=== PATIENT | male | born 1950 | race Caucasian/White ===

== ENCOUNTER 2020-03-13 01:03 | Outpatient (CLI) | payer MEDICARE, SELFPAY ==
[2020-03-13 19:16] LABS: SARS-CoV-2 RNA PCR Negative
== END 2020-03-13 01:04 | disposition home or self-care (01) ==
LOC: ANHCOVIDDT 01:05
PROVIDERS: Visit Provider Internal Medicine Gastroenterology
DX: Z01.818 Encounter for other preprocedural examination (principal); Z11.59 Encounter for screening for other viral diseases; E11.9 Type 2 diabetes mellitus without complications
CPT/HCPCS: 87635; C9803; U0003

== ENCOUNTER 2020-03-15 01:17 | Day surgery (SDC) | payer MEDICARE, SELFPAY ==
[2020-03-07 13:12] VITALS: BMI 33.3
[2020-03-15 06:20] VITALS: BP 145/91; PULSE 69; RESP 17; TEMP 36.6; O2SAT 97
[2020-03-15] MEDS: LACTATED RINGERS 1,000 ML 150 ML IV CONT (06:32)
--- NOTE | 2020-03-15 07:19 | P.PNAN_ITS ---
Anes - Initial Pre Proc Eval Procedure: Operation Date: 03/15/20 07:30 Proposed Procedures p Screening Colonoscopy - David Patton MD Date/Time: 03/15/20 07:19 Surgeon: David Patton MD Pre Op Diagnosis: Personal Hx Colon Ca Patient Data Age: 69 Gender: M Height: 6 ft Weight: 107.4 kg Last Vital Signs Temp 97.9 F 03/15/20 06:20 Pulse 69 03/15/20 06:20 Resp 17 03/15/20 06:20 BP 145/91 H 03/15/20 06:20 Pulse Ox 97 03/15/20 06:20 Allergies Allergy/AdvReac Type Severity Reaction Status Date / Time No Known Allergies Allergy Verified 03/15/20 06:17 Home Medications Medication Instructions Recorded Confirmed Type aspirin [Adult Low Dose Aspirin] 81 mg PO DAILY 03/07/20 03/15/20 History atorvastatin 40 mg PO DAILY 03/07/20 03/15/20 History calcium carbonate [Calcium 600] 600 mg PO DAILY 03/07/20 03/15/20 History gabapentin 300 mg PO DAILY 03/07/20 03/15/20 History gemfibrozil 600 mg PO BID 03/07/20 03/15/20 History maqxzxdg-oup-WH-lycopen-lutein 1 tablet PO DAILY 03/07/20 03/15/20 History [Men 50 Plus Multivitamin] Patient hx anesthesia problems: none Family hx anesthesia problems: none PMFSH Past Medical History Medical History (Updated 03/15/20 @ 07:20 by Alex Chinchilla MD) H/O colon cancer, stage I 2002; no residual problems Hyperlipidemia Social History Social History Gender identity (if verbalized by the patient): Male Anes - Eval Final PreProcedure Day of Procedure 03/15/20 07:19 Patient weight: overweight Heart: regular rate and rhythm Lungs: clear to auscultation Airway: Mallampati scale class II Neurological: alert and oriented Last oral intake: >/= 8 hours ASA classification: II Emergent: no Anesthetic plan: proceed Anesthesia type and monitoring: general GIVS and standard monitoring Informed Consent: The patient's anesthetic plan and its attendant risks and b enefits were discussed with the patient/family/POA. Questions were solicited and answers provided to the satisfaction of the patient/family/POA.
--- NOTE | 2020-03-15 07:48 | WPDGICN ---
Assessment and Plan Additional Plan Plan is for surveillance colonoscopy at this time because of his prior history of colon cancer. Follow-up colonoscopy every 3-5 years advised. GI Consult Note Consult date/time: 03/15/20 07:48 HPI: Jason Mccauley is a 69 year old male seen in evaluation at the request of Dr Araujo.Patient presents for surveillance colonoscopy. Patient has a past medical history of colon cancer resected in 2001. His current weight appetite bowel movements are normal. He denies abdominal pain he denies any bleeding. Family history is noncontributory. Review of Systems Review of Systems: All systems reviewed & are unremarkable except as noted in HPI and below PMFSH Past Medical History Medical History H/O colon cancer, stage I 2002; no residual problems Hyperlipidemia Social History Social History Gender identity (if verbalized by the patient): Male Meds Home Medications and Allergies Home Medications Medication Instructions Recorded Confirmed Type aspirin [Adult Low Dose Aspirin] 81 mg PO DAILY 03/07/20 03/15/20 History atorvastatin 40 mg PO DAILY 03/07/20 03/15/20 History calcium carbonate [Calcium 600] 600 mg PO DAILY 03/07/20 03/15/20 History gabapentin 300 mg PO DAILY 03/07/20 03/15/20 History gemfibrozil 600 mg PO BID 03/07/20 03/15/20 History eozwlqkw-iin-QZ-lycopen-lutein 1 tablet PO DAILY 03/07/20 03/15/20 History [Men 50 Plus Multivitamin] Allergies Allergy/AdvReac Type Severity Reaction Status Date / Time No Known Allergies Allergy Verified 03/15/20 06:17 Vital Signs Vital Signs - 24 hr 03/15/20 06:20 Temperature 97.9 F Pulse Rate 69 Respiratory Rate 17 Blood Pressure 145/91 H Pulse Oximetry 97 Exam Narrative: Exam Narrative: Physical exam reveals patient to be alert. Vital signs stable. HEENT exam unremarkable. Lungs are clear to auscultation and percussion. Heart is without murmur or extra sounds. Abdominal exam bowel sounds are present soft nontender with no hepatosplenomegaly. Digital external rectal exam normal.
[2020-03-15 07:52] VITALS: BP 131/80; PULSE 89; RESP 25; O2SAT 94
[2020-03-15 08:02] VITALS: BP 130/89; PULSE 76; RESP 17; O2SAT 97
[2020-03-15 08:12] VITALS: BP 136/87; PULSE 73; RESP 14; O2SAT 99
== END 2020-03-15 08:17 | disposition home or self-care (01) ==
PROVIDERS: Visit Provider Internal Medicine Gastroenterology
PROC: 0DJD8ZZ Inspection of Lower Intestinal Tract, Via Natural or Artificial Opening Endoscopic (ICD-10-PCS; CPT 45378; principal; 2020-03-15 07:30)
DX: Z12.11 Encounter for screening for malignant neoplasm of colon (principal); D12.2 Benign neoplasm of ascending colon; K62.1 Rectal polyp; K64.8 Other hemorrhoids; Z98.0 Intestinal bypass and anastomosis status; Z85.038 Personal history of other malignant neoplasm of large intestine; Z90.49 Acquired absence of other specified parts of digestive tract; E78.5 Hyperlipidemia, unspecified; Z79.82 Long term (current) use of aspirin
CPT/HCPCS: 45385; 88305; J2704; J7120

== ENCOUNTER 2022-12-25 00:27 | Day surgery (SDC) | payer MEDICARE, SELFPAY ==
[2022-12-16 13:22] VITALS: BMI 34.0
[2022-12-25 06:25] VITALS: BP 142/78; PULSE 68; RESP 18; TEMP 36.3; O2SAT 97; BMI 32.9
[2022-12-25] MEDS: LACTATED RINGERS 1,000 ML 150 ML IV CONT (06:42)
--- NOTE | 2022-12-25 07:14 | P.PNAN_ITS ---
Anes - Initial Pre Proc Eval Procedure: Operation Date: 12/25/22 07:30 Proposed Procedures p Colonoscopy - David Patton MD Date/Time: 12/25/22 07:14 Surgeon: David Patton MD Pre Op Diagnosis: hx of colon ca Patient Data Age: 72 Gender: M Height: 1.83 m Weight: 110.2 kg Last Vital Signs Temp 97.3 F L 12/25/22 06:25 Pulse 68 12/25/22 06:25 Resp 18 12/25/22 06:25 BP 142/78 H 12/25/22 06:25 Pulse Ox 97 12/25/22 06:25 O2 Del Method Room Air 12/25/22 06:25 Allergies Allergy/AdvReac Type Severity Reaction Status Date / Time No Known Allergies Allergy Verified 12/25/22 06:23 Home Medications Medication Instructions Recorded Confirmed Type atorvastatin 40 mg tablet 40 mg PO DAILY 03/07/20 12/25/22 History calcium carbonate 600 mg calcium 600 mg PO DAILY 03/07/20 12/25/22 History (1,500 mg) tablet (Calcium) gemfibrozil 600 mg tablet 600 mg PO BID 03/07/20 12/25/22 History fslpbzjh-mmi-jjwnl acid 300 1 tablet PO DAILY 03/07/20 12/25/22 History mcg-lycopene 600 mcg-lutein 300 mcg tablet (Men 50 Plus Multivitamin) sodium,potassium,mag sulfates 17.5 See Rx Instructions PO .COMPLEX 11/27/22 12/25/22 Rx gram-3.13 gram-1.6 gram oral soln #354 mL (Suprep Bowel Prep Kit) Patient hx anesthesia problems: none Family hx anesthesia problems: none Results Review: All pre-operative results and documents have been reviewed as part of the pre- operative evaluation. [facility] Past Medical History Medical History (Updated 03/15/20 @ 07:50 by David Patton MD) H/O colon cancer, stage I 2002; no residual problems Hyperlipidemia Social History Social History Smoking status: Never smoker Substance use: never Living arrangements: with family Gender identity (if verbalized by the patient): Male Spiritual care concerns: No Anes - Eval Final PreProcedure Day of Procedure 04/20/23 07:14 Patient weight: obese Heart: regular rate and rhythm Lungs: clear to auscultation Airway: Mallampati scale class II Neurological: alert and oriented Last oral intake: >/= 8 hours ASA classification: III Emergent: no Anesthetic plan: proceed Anesthesia type and monitoring: general GIVS and standard monitoring Results Review: All pre-operative results and documents have been reviewed as part of the pre- operative evaluation. Informed Consent: The patient's anesthetic plan and its attendant risks and benefits were discussed with the patient/family/POA. Questions were solicited and answers provided to the satisfaction of the patient/family/POA.
--- NOTE | 2022-12-25 07:32 | PM.HPGS ---
History of Present Illness History of Present Illness Consent: Risks, benefits, and alternatives have been discussed and questions answered. Patient agrees to proceed with procedure. Chief complaint: hx of colon ca Narrative: Jason Mccauley is a 72 year old male Presents for surveillance colonoscopy. Patient has a history of colon cancer resected in 2002 20 years ago. This is felt to be cured. His current weight appetite and bowel movements are normal. Patient denies abdominal pain. He has had no bleeding. He presents today for surveillance colonoscopy. Patient was found to have benign colon polyps at time of last colonoscopy in 2019. Review of Systems Review of Systems: Review of systems is noncontributory. [facility] Past Medical History Medical History (Updated 03/15/20 @ 07:50 by David Patton MD) H/O colon cancer, stage I 2002; no residual problems Hyperlipidemia Social History Social History Smoking status: Never smoker Substance use: never Living arrangements: with family Gender identity (if verbalized by the patient): Male Spiritual care concerns: No Meds Home Medications and Allergies Home Medications Medication Instructions Recorded Confirmed Type atorvastatin 40 mg tablet 40 mg PO DAILY 03/07/20 12/25/22 History calcium carbonate 600 mg calcium 600 mg PO DAILY 03/07/20 12/25/22 History (1,500 mg) tablet (Calcium) gemfibrozil 600 mg tablet 600 mg PO BID 03/07/20 12/25/22 History gbajuoss-mlx-petzv acid 300 1 tablet PO DAILY 03/07/20 12/25/22 History mcg-lycopene 600 mcg-lutein 300 mcg tablet (Men 50 Plus Multivitamin) sodium,potassium,mag sulfates 17.5 See Rx Instructions PO .COMPLEX 11/27/22 12/25/22 Rx gram-3.13 gram-1.6 gram oral soln #354 mL (Suprep Bowel Prep Kit) Allergies Allergy/AdvReac Type Severity Reaction Status Date / Time No Known Allergies Allergy Verified 12/25/22 06:23 Vital Signs Vital Signs - 24 hr 12/25/22 06:25 Temperature 97.3 F L Pulse Rate 68 Respiratory Rate 18 Blood Pressure 142/78 H Pulse Oximetry 97 Oxygen Delivery Room Air Exam Narrative: Physical exam reveals patient be alert. Vital signs stable. HEENT exam is unremarkable. Patient is anicteric. Lungs are clear to auscultation and percussion. Heart is without murmur or extra sounds. Abdomen bowel sounds are present soft nontender with no organomegaly. Digital external rectal exam is normal. Assessment and Plan Assessment and plan (1) H/O colon cancer, stage I: Code(s): Z85.038 - Personal history of other malignant neoplasm of large intestine Status: Acute Assessment and Plan: Patient with a history of colon polyps also has a history resected colon cancer 2002. Plan for surveillance colonoscopy now and consider this at 3 year intervals.
[2022-12-25 07:49] VITALS: BP 114/68; PULSE 73; RESP 23; O2SAT 96
[2022-12-25 07:59] VITALS: BP 134/84; PULSE 76; RESP 21; O2SAT 96
[2022-12-25 08:09] VITALS: BP 140/86; PULSE 70; RESP 14; O2SAT 97
== END 2022-12-25 08:15 | disposition home or self-care (01) ==
PROVIDERS: Visit Provider Internal Medicine Gastroenterology
PROC: 0DJD8ZZ Inspection of Lower Intestinal Tract, Via Natural or Artificial Opening Endoscopic (ICD-10-PCS; CPT 45378; principal; 2022-12-25 07:30)
DX: Z12.11 Encounter for screening for malignant neoplasm of colon (principal); K64.8 Other hemorrhoids; Z85.038 Personal history of other malignant neoplasm of large intestine; E78.5 Hyperlipidemia, unspecified; E66.9 Obesity, unspecified; Z68.32 Body mass index [BMI] 32.0-32.9, adult
CPT/HCPCS: G0105; J2704; J7120